=== PATIENT | male | born 1965 | race Caucasian/White ===

== ENCOUNTER 2018-05-29 11:51 | Emergency (ER) | payer SELFPAY ==
[~2018-05-29] VITALS: Ht 180.3 cm; Wt 84.0 kg
[2018-05-29 13:27] LABS: EOSINOPHILS % 0.3 % (0.0-5.0); HEMATOCRIT. 48.2 % (42.0-52.0); HEMOGLOBIN. 17.2 g/dL (14.0-18.0); LYMPHOCYTES % 26.5 % (20.0-50.0); MEAN CORPUSCULAR HEMOGLOBIN 35.6 pg (28.0-32.0); MEAN CORPUSCULAR VOLUME 99.6 fL (80.0-94.0); MEAN PLATELET VOLUME 8.4 fl (7.4-10.4); MONOCYTES % 12.4 % (2.0-8.0); NEUTROPHILS % 59.8 % (40.0-76.0); PLATELET 192 x1000/uL (130-400); RED BLOOD CELL COUNT 4.84 mill/uL (4.7-6.1); RED CELL DISTRIBUTION WIDTH 12.9 % (11.6-14.6)
[2018-05-29 13:33] LABS: CHLORIDE 106 mEq/L (98-107)
[2018-05-29 13:34] LABS: INR 1.1; PROTHROMBIN TIME 11.3 sec (9.4-11.6)
[2018-05-29] MEDS ORDERED: MORPHINE SULFATE 4 MG/ML CPJ (NOT FOR IM USE) IV ONE ×2 (13:45→15:00)
[2018-05-29] MEDS ORDERED: ONDANSETRON HCL 4MG/2ML VIAL IV ONE ×2 (13:45→15:00)
[2018-05-29] MEDS ORDERED: DIAZEPAM 5 MG TABLET PO ONE (14:15)
[2018-05-29] MEDS ORDERED: TAMSULOSIN HCL 0.4MG SR CAPSULE PO ONE ×2 (14:15→15:15)
[2018-05-29 14:43] LABS: CLARITY URINE CLEAR (CLEAR); COLOR URINE YELLOW (YELLOW); KETONES URINE NEGATIVE (NEGATIVE); LEUKOCYTE ESTERASE URINE NEGATIVE (NEGATIVE); NITRITE URINE NEGATIVE (NEGATIVE); OCCULT BLOOD URINE NEGATIVE (NEGATIVE); PH URINE 6.5 (4.5-8.0); PROTEIN URINE NEGATIVE (NEGATIVE); SPECIFIC GRAVITY URINE 1.007 (1.005-1.030); UROBILINOGEN URINE 0.2 E.U./dL (0.2-1.0)
[2018-05-29] MEDS ORDERED: OXYBUTYNIN CHLORIDE 5MG TABLET PO ONE (15:30)
[2018-05-29 18:55] VITALS: BP 134/75
== END 2018-05-29 19:00 | disposition home or self-care (01) ==
LOC: ER 11:51
DX: N40.1 Benign prostatic hyperplasia with lower urinary tract symptoms (principal); R33.8 Other retention of urine; I10 Essential (primary) hypertension; Z91.19 Patient's noncompliance with other medical treatment and regimen
CPT/HCPCS: 36415; 51702; 74176; 80053; 81003; 85025; 85610; 87086; 96374; 96375; 96376; 99285; J2270; J2405; A4315

== ENCOUNTER 2018-05-30 13:49 | Emergency (ER) | payer MEDICAID ==
[~2018-05-30] VITALS: Ht 180.3 cm; Wt 84.0 kg
[2018-05-30] MEDS ORDERED: VISCOUS LIDOCAINE 2% 15 ML UDC PO STA (14:27)
[2018-05-30] MEDS ORDERED: MORPHINE SULFATE 4 MG/ML CPJ (NOT FOR IM USE) IV STA (14:27)
[2018-05-30] MEDS ORDERED: KETOROLAC 30MG/ML VIAL IV STA (14:27)
[2018-05-30] MEDS ORDERED: ONDANSETRON HCL 4MG/2ML VIAL IV STA (14:27)
[2018-05-30] MEDS ORDERED: SODIUM CHLORIDE 0.9% 1,000 ML IV ONE (14:27)
[2018-05-30 14:42] LABS: BASOPHILS % 0.8 % (0.0-2.0); EOSINOPHILS % 0.3 % (0.0-5.0); HEMATOCRIT. 47.1 % (42.0-52.0); HEMOGLOBIN. 16.8 g/dL (14.0-18.0); LYMPHOCYTES % 16.8 % (20.0-50.0); MEAN CORPUSCULAR HEMOGLOBIN 35.4 pg (28.0-32.0); MEAN CORPUSCULAR VOLUME 99.6 fL (80.0-94.0); MEAN PLATELET VOLUME 9.1 fl (7.4-10.4); MONOCYTES % 10.7 % (2.0-8.0); NEUTROPHILS % 71.4 % (40.0-76.0); PLATELET 179 x1000/uL (130-400); RED BLOOD CELL COUNT 4.73 mill/uL (4.7-6.1)
[2018-05-30 14:45] LABS: CHLORIDE 99 mEq/L (98-107)
[2018-05-30] MEDS ORDERED: MORPHINE SULFATE 10 MG/ML CPJ ONE (15:22)
[2018-05-30] MEDS ORDERED: FENTANYL CITRATE/PF 50MCG/ML 2ML VIAL IV ONE (15:30)
[2018-05-30] MEDS ORDERED: MORPHINE SULFATE 10 MG/ML CPJ IV ONE (15:30)
[2018-05-30] MEDS ORDERED: ONDANSETRON HCL 4MG/2ML VIAL IV ONE ×2 (15:30→16:00)
[2018-05-30 15:36] LABS: CLARITY URINE CLEAR (CLEAR); COLOR URINE YELLOW (YELLOW); KETONES URINE NEGATIVE (NEGATIVE); LEUKOCYTE ESTERASE URINE NEGATIVE (NEGATIVE); NITRITE URINE NEGATIVE (NEGATIVE); OCCULT BLOOD URINE TRACE (NEGATIVE); PH URINE 6.5 (4.5-8.0); PROTEIN URINE NEGATIVE (NEGATIVE); SPECIFIC GRAVITY URINE 1.004 (1.005-1.030); UROBILINOGEN URINE 0.2 E.U./dL (0.2-1.0)
[2018-05-30] MEDS ORDERED: MORPHINE SULFATE 4 MG/ML CPJ (NOT FOR IM USE) IV ONE (16:45)
[2018-05-30 17:36] VITALS: BP 135/78
== END 2018-05-30 17:41 | disposition home or self-care (01) ==
LOC: ER 14:33
DX: R10.9 Unspecified abdominal pain (principal); R33.9 Retention of urine, unspecified; I10 Essential (primary) hypertension; F17.200 Nicotine dependence, unspecified, uncomplicated; N40.0 Benign prostatic hyperplasia without lower urinary tract symptoms; Z88.8 Allergy status to other drugs, medicaments and biological substances
CPT/HCPCS: 36415; 51702; 80053; 81003; 83690; 85025; 96374; 96375; 96376; 99285; J1885; J2270; J2405; J3010; J7030; A4315

== ENCOUNTER 2018-10-26 09:03 | Emergency (ER) | payer MEDICAID ==
[~2018-10-26] VITALS: Ht 177.8 cm; Wt 85.0 kg
[2018-10-26 09:08] VITALS: BP 142/101
== END 2018-10-26 10:10 | disposition left against medical advice (07) ==
LOC: ER 09:03
DX: M25.562 Pain in left knee (principal); Z53.21 Procedure and treatment not carried out due to patient leaving prior to being seen by health care provider

== ENCOUNTER 2019-03-10 11:35 | Inpatient (IN) | payer MEDICAID ==
[~2019-03-10] VITALS: Ht 180.3 cm; Wt 78.5 kg
[2019-03-10] MEDS ORDERED: ONDANSETRON HCL 4MG/2ML INJ IV STA (12:18)
[2019-03-10] MEDS ORDERED: MORPHINE SULFATE 4 MG/ML CPJ (NOT FOR IM USE) IV STA (12:18)
[2019-03-10] MEDS ORDERED: SODIUM CHLORIDE 0.9% 1,000 ML IV ONE (12:18)
[2019-03-10 13:27] LABS: BASOPHILS % 0.5 % (0.0-2.0); CHLORIDE 107 mEq/L (98-107); EOSINOPHILS % 0.2 % (0.0-5.0); HEMATOCRIT. 39.3 % (42.0-52.0); HEMOGLOBIN. 13.8 g/dL (14.0-18.0); LYMPHOCYTES % 18.5 % (20.0-50.0); MEAN CORPUSCULAR HEMOGLOBIN 33.4 pg (28.0-32.0); MEAN PLATELET VOLUME 8.6 fl (7.4-10.4); MONOCYTES % 8.1 % (2.0-8.0); NEUTROPHILS % 72.7 % (40.0-76.0); PLATELET 285 x1000/uL (130-400); RED BLOOD CELL COUNT 4.13 mill/uL (4.7-6.1); RED CELL DISTRIBUTION WIDTH 14.9 % (11.6-14.6)
[2019-03-10 13:30] LABS: INR 1.1; PARTIAL THROMBOPLASTIN TIME 32.2 sec (23.4-31.0); PROTHROMBIN TIME 10.9 sec (9.6-11.0)
[2019-03-10] MEDS ORDERED: GUAIFENESIN 200MG/10ML SUGAR FREE UDC PO PRN (16:15)
[2019-03-10] MEDS ORDERED: IPRATROPIUM/ALBUTEROL 0.5-3(2.5)MG/3ML NEB INH PRN (16:15)
[2019-03-10] MEDS ORDERED: CLONIDINE 0.1MG TABLET PO PRN (16:15)
[2019-03-10] MEDS ORDERED: MAGNESIUM/ALUMINUM HYDROXIDE/SIMETHICONE 30ML UDC PO PRN (16:15)
[2019-03-10] MEDS ORDERED: ACETAMINOPHEN 325MG TABLET PO PRN (16:15)
[2019-03-10] MEDS ORDERED: DOCUSATE SODIUM 100MG CAPSULE PO PRN (16:15)
[2019-03-10 16:34] LABS: PHOSPHORUS 2.9 mg/dL (2.5-4.9)
[2019-03-10 20:00] VITALS: BP 157/108
[2019-03-10] MEDS ORDERED: TIZA4CAP6 PO (21:41)
[2019-03-10] MEDS ORDERED: DUTA0.5C15 PO (21:41)
[2019-03-10] MEDS ORDERED: LISI40TA4 PO (21:41)
[2019-03-10] MEDS ORDERED: FAMO20TA8 PO (21:42)
[2019-03-10] MEDS ORDERED: ONDA4SOL PO (21:43)
[2019-03-10] MEDS ORDERED: GABA-531 PO (21:44)
[2019-03-10] MEDS ORDERED: TAMS0.4C31 PO (21:44)
[2019-03-10 22:02] VITALS: BP 157/108
[2019-03-10] MEDS ORDERED: ZOLP10TA2 PO (22:02)
[2019-03-10 22:06] VITALS: BP 157/108
[2019-03-10] MEDS: ENOXAPARIN 40MG/0.4ML SYR SUBCUT SCH (22:32)
[2019-03-10 23:06] LABS: CREATINE KINASE 73 IU/L (39-308)
[2019-03-10 23:07] LABS: CREATINE KINASE MB FRACTION < 1.0 ng/mL (0.5-3.6)
[2019-03-11] VITALS: BP 129/91
[2019-03-11] MEDS ORDERED: NON FORMULARY PATIENT HOME MED XX PRN (00:15)
[2019-03-11] MEDS: MORPHINE SULFATE 4 MG/ML CPJ (NOT FOR IM USE) IV PRN ×5 (00:24→20:34)
[2019-03-11] MEDS: ZOLPIDEM TARTRATE 5MG TABLET PO PRN ×2 (01:37→23:29)
[2019-03-11] MEDS: HYDROCODONE/ACETAMINOPHEN 5/325MG TABLET PO PRN (03:28)
[2019-03-11 04:00] VITALS: BP 138/82
[2019-03-11 06:44] LABS: BASOPHILS % 0.6 % (0.0-2.0); EOSINOPHILS % 1.7 % (0.0-5.0); HEMATOCRIT. 37.5 % (42.0-52.0); HEMOGLOBIN. 13.3 g/dL (14.0-18.0); LYMPHOCYTES % 35.9 % (20.0-50.0); MEAN CORPUSCULAR HEMOGLOBIN 33.6 pg (28.0-32.0); MEAN CORPUSCULAR VOLUME 94.6 fL (80.0-94.0); MEAN PLATELET VOLUME 8.8 fl (7.4-10.4); MONOCYTES % 10.3 % (2.0-8.0); NEUTROPHILS % 51.5 % (40.0-76.0); PLATELET 267 x1000/uL (130-400); RED BLOOD CELL COUNT 3.96 mill/uL (4.7-6.1); RED CELL DISTRIBUTION WIDTH 14.6 % (11.6-14.6)
[2019-03-11 07:07] LABS: CHLORIDE 106 mEq/L (98-107)
[2019-03-11 07:22] LABS: LDL CHOLESTEROL 144 mg/dL (5-100)
[2019-03-11 07:24] LABS: CREATINE KINASE 66 IU/L (39-308); HDL CHOLESTEROL 37 mg/dL (40-59)
[2019-03-11 07:27] LABS: CREATINE KINASE MB FRACTION < 1.0 ng/mL (0.5-3.6)
[2019-03-11 08:00] VITALS: BP 159/93
[2019-03-11] MEDS: ONDANSETRON HCL 4MG/2ML INJ IV PRN ×2 (08:31→23:49)
[2019-03-11 12:00] VITALS: BP 139/98
[2019-03-11 16:00] VITALS: BP 144/83
[2019-03-11] MEDS: LORAZEPAM 1MG TABLET PO PRN ×2 (17:27→23:01)
[2019-03-11 20:00] VITALS: BP 114/72
[2019-03-11] MEDS: ATORVASTATIN CALCIUM 20MG TABLET PO SCH (20:32)
[2019-03-11] MEDS: ENOXAPARIN 40MG/0.4ML SYR SUBCUT SCH (21:32)
[2019-03-12] VITALS: BP 130/83
[2019-03-12] MEDS: NICOTINE 7MG PATCH TD SCH ×2 (00:09→20:12)
[2019-03-12] MEDS: MORPHINE SULFATE 4 MG/ML CPJ (NOT FOR IM USE) IV PRN ×5 (00:30→20:07)
[2019-03-12 04:30] VITALS: BP 112/76
[2019-03-12] MEDS: HYDROCODONE/ACETAMINOPHEN 5/325MG TABLET PO PRN (06:18)
[2019-03-12 06:20] LABS: CHLORIDE 106 mEq/L (98-107)
[2019-03-12 06:26] LABS: HEMATOCRIT. 37.8 % (42.0-52.0); HEMOGLOBIN. 13.2 g/dL (14.0-18.0); LYMPHOCYTES % 31.3 % (20.0-50.0); MEAN CORPUSCULAR HEMOGLOBIN 33.3 pg (28.0-32.0); MEAN CORPUSCULAR VOLUME 95.5 fL (80.0-94.0); MEAN PLATELET VOLUME 8.9 fl (7.4-10.4); MONOCYTES % 8.6 % (2.0-8.0); NEUTROPHILS % 57.1 % (40.0-76.0); PLATELET 255 x1000/uL (130-400); RED BLOOD CELL COUNT 3.96 mill/uL (4.7-6.1); RED CELL DISTRIBUTION WIDTH 14.7 % (11.6-14.6)
[2019-03-12] MEDS: LORAZEPAM 1MG TABLET PO PRN ×3 (06:44→22:01)
[2019-03-12 08:00] VITALS: BP 134/101
[2019-03-12] MEDS: ONDANSETRON HCL 4MG/2ML INJ IV PRN (09:28)
[2019-03-12 12:00] VITALS: BP 124/86
[2019-03-12] MEDS: TAMSULOSIN HCL 0.4MG SR CAPSULE PO SCH (12:19)
[2019-03-12] MEDS: HYDROCODONE/ACETAMINOPHEN 10/325MG TABLET PO PRN (12:19)
[2019-03-12 16:00] VITALS: BP_SYST 109; BP_SYST 129; BP_DIAS 76; BP_DIAS 80
[2019-03-12 20:00] VITALS: BP 134/95
[2019-03-12] MEDS: ENOXAPARIN 40MG/0.4ML SYR SUBCUT SCH (20:32)
[2019-03-12] MEDS: ATORVASTATIN CALCIUM 20MG TABLET PO SCH (20:32)
[2019-03-13] VITALS: BP 119/70
[2019-03-13] MEDS: MORPHINE SULFATE 4 MG/ML CPJ (NOT FOR IM USE) IV PRN ×2 (02:28→06:40)
[2019-03-13 04:00] VITALS: BP 135/80
[2019-03-13 08:00] VITALS: BP 121/90
[2019-03-13] MEDS: TAMSULOSIN HCL 0.4MG SR CAPSULE PO SCH (08:36)
[2019-03-13] MEDS: HYDROCODONE/ACETAMINOPHEN 10/325MG TABLET PO PRN ×3 (08:36→17:48)
[2019-03-13] MEDS: LORAZEPAM 1MG TABLET PO PRN ×4 (08:37→22:10)
[2019-03-13 12:00] VITALS: BP 151/99
[2019-03-13] MEDS ORDERED: TRAMADOL 50MG TABLET PO PRN (13:15)
[2019-03-13] MEDS: CYCLOBENZAPRINE 10MG TABLET PO SCH ×2 (13:47→21:19)
[2019-03-13 16:00] VITALS: BP 125/77
[2019-03-13 20:00] VITALS: BP 114/83
[2019-03-13] MEDS: ATORVASTATIN CALCIUM 20MG TABLET PO SCH (21:19)
[2019-03-13] MEDS: ENOXAPARIN 40MG/0.4ML SYR SUBCUT SCH (21:19)
[2019-03-13] MEDS: OXYCODONE HCL/ACETAMINOPHEN 5/325MG TABLET PO PRN (21:20)
[2019-03-13] MEDS: NICOTINE 7MG PATCH TD SCH (21:21)
[2019-03-13] MEDS: ZOLPIDEM TARTRATE 5MG TABLET PO PRN (22:32)
[2019-03-14 00:37] VITALS: BP 116/79
[2019-03-14 04:00] VITALS: BP 125/80
[2019-03-14] MEDS: CYCLOBENZAPRINE 10MG TABLET PO SCH (06:00)
[2019-03-14 08:00] VITALS: BP 162/111
[2019-03-14] MEDS: LORAZEPAM 1MG TABLET PO PRN (08:11)
[2019-03-14] MEDS: TAMSULOSIN HCL 0.4MG SR CAPSULE PO SCH (08:11)
[2019-03-14 08:19] VITALS: BP 162/111
[2019-03-14] MEDS: OXYCODONE HCL/ACETAMINOPHEN 5/325MG TABLET PO PRN (08:19)
[2019-03-14] MEDS ORDERED: NEBIVOLOL HCL 5 MG TABLET PO SCH (12:15)
== END 2019-03-14 08:49 | disposition left against medical advice (07) | DRG 48 ==
LOC: ER 11:35 → 5WST 14:03 → EDBEDREQ 14:04 → ENRESERV 16:58
PROVIDERS: ADMIT Internal Medicine; ATTEND Internal Medicine
DX: G90.8 Other disorders of autonomic nervous system (principal); I27.20 Pulmonary hypertension, unspecified; D64.9 Anemia, unspecified; G89.29 Other chronic pain; I10 Essential (primary) hypertension; N40.0 Benign prostatic hyperplasia without lower urinary tract symptoms; F32.9 Major depressive disorder, single episode, unspecified; J44.9 Chronic obstructive pulmonary disease, unspecified; E78.5 Hyperlipidemia, unspecified; F17.210 Nicotine dependence, cigarettes, uncomplicated; F41.9 Anxiety disorder, unspecified; W19.XXXA Unspecified fall, initial encounter; M19.90 Unspecified osteoarthritis, unspecified site; Z88.8 Allergy status to other drugs, medicaments and biological substances; Z79.899 Other long term (current) drug therapy; Y93.89 Activity, other specified; Y92.89 Other specified places as the place of occurrence of the external cause; Y99.8 Other external cause status
CPT/HCPCS: 36415; 71045; 80048; 80061; 82550; 82553; 83735; 83880; 84100; 84134; 84443; 84484; 93005; 93306; 93308; 93880; 96374; 96375; 97162; 97166; 97530; 99285; J1650; J2270; J2405; J7030

== ENCOUNTER 2019-10-24 13:35 | Inpatient (IN) | payer MEDICAID ==
[~2019-10-24] VITALS: Ht 175.3 cm; Wt 82.1 kg
[~2019-10-24 13:35] MED LIST: DUTA0.5C15 PO; FAMO20TA8 PO; GABA-531 PO; LISI40TA4 PO; ONDA4SOL PO; TAMS0.4C31 PO; TIZA4CAP6 PO; ZOLP10TA2 PO
[2019-10-24] MEDS ORDERED: SODIUM CHLORIDE 0.9% 1,000 ML IV ONE (15:00)
[2019-10-24] MEDS ORDERED: MORPHINE SULFATE 4 MG/ML CPJ (NOT FOR IM USE) IV STA (15:00)
[2019-10-24] MEDS ORDERED: ONDANSETRON HCL 4MG/2ML INJ IV STA (15:00)
[2019-10-24 15:38] LABS: BASOPHILS % 0.8 % (0.0-2.0); EOSINOPHILS % 0.8 % (0.0-5.0); HEMATOCRIT. 45.8 % (42.0-52.0); LYMPHOCYTES % 26.7 % (20.0-50.0); MEAN CORPUSCULAR HEMOGLOBIN 36.2 pg (28.0-32.0); MEAN CORPUSCULAR VOLUME 103.4 fL (80.0-94.0); MEAN PLATELET VOLUME 8.6 fl (7.4-10.4); NEUTROPHILS % 63.7 % (40.0-76.0); PLATELET 185 x1000/uL (130-400); RED BLOOD CELL COUNT 4.43 mill/uL (4.7-6.1); RED CELL DISTRIBUTION WIDTH 14.3 % (11.6-14.6)
[2019-10-24 15:41] LABS: PROTHROMBIN TIME 10.7 sec (9.6-11.0)
[2019-10-24 15:45] LABS: CHLORIDE 108 mEq/L (98-107)
[2019-10-24 15:49] LABS: ETHANOL BLOOD 138 mg/dL
[2019-10-24 16:29] LABS: CLARITY URINE CLEAR (CLEAR); COLOR URINE YELLOW (YELLOW); KETONES URINE NEGATIVE (NEGATIVE); LEUKOCYTE ESTERASE URINE NEGATIVE (NEGATIVE); NITRITE URINE NEGATIVE (NEGATIVE); OCCULT BLOOD URINE 2+ (NEGATIVE); PH URINE 6.5 (4.5-8.0); PROTEIN URINE NEGATIVE (NEGATIVE); SPECIFIC GRAVITY URINE 1.009 (1.005-1.030); UROBILINOGEN URINE 0.2 E.U./dL (0.2-1.0)
[2019-10-24] MEDS ORDERED: MORPHINE SULFATE 4 MG/ML CPJ (NOT FOR IM USE) IV ONE (16:30)
[2019-10-24 16:44] LABS: *BARBITURATES SCREEN URINE NEGATIVE (NEGATIVE); *BENZODIAZEPINES SCREEN URINE NEGATIVE (NEGATIVE); *COCAINE SCREEN URINE NEGATIVE (NEGATIVE)
[2019-10-24 16:45] LABS: *AMPHETAMINES SCREEN URINE NEGATIVE (NEGATIVE); CANNABINOID URINE SCREEN PRESUMTIVE POSITIVE (NEGATIVE); METHADONE URINE SCREEN NEGATIVE (NEGATIVE); OPIATES URINE SCREEN PRESUMTIVE POSITIVE (NEGATIVE); PHENCYCLIDINE URINE SCREEN NEGATIVE (NEGATIVE)
[2019-10-24] MEDS ORDERED: ACETAMINOPHEN 325MG TABLET PO PRN (19:45)
[2019-10-24] MEDS ORDERED: ONDANSETRON HCL 4MG/2ML INJ IV PRN (19:45)
[2019-10-24] MEDS ORDERED: DOCUSATE SODIUM 100MG CAPSULE PO PRN (19:45)
[2019-10-24] MEDS ORDERED: IPRATROPIUM/ALBUTEROL 0.5-3(2.5)MG/3ML NEB HHN PRN (19:45)
[2019-10-24] MEDS: LORAZEPAM 0.5MG TABLET PO PRN (20:24)
[2019-10-24] MEDS: MORPHINE SULFATE 2 MG/ML CPJ (NOT FOR IM USE) IV PRN (20:24)
[2019-10-24] MEDS: CLONIDINE 0.1MG TABLET PO PRN (21:05)
[2019-10-24] MEDS: HYDROCODONE/ACETAMINOPHEN 5/325MG TABLET PO PRN (22:47)
[2019-10-25] MEDS: MORPHINE SULFATE 2 MG/ML CPJ (NOT FOR IM USE) IV PRN ×2 (00:47→04:47)
[2019-10-25] MEDS: HYDROCODONE/ACETAMINOPHEN 5/325MG TABLET PO PRN ×2 (02:19→06:21)
[2019-10-25] MEDS: CLONIDINE 0.1MG TABLET PO PRN (03:15)
[2019-10-25] MEDS: LORAZEPAM 0.5MG TABLET PO PRN (03:15)
[2019-10-25 03:36] VITALS: BP 185/120
[2019-10-25 05:13] VITALS: BP 131/97
[2019-10-25 06:21] VITALS: BP 131/99
== END 2019-10-25 07:55 | disposition left against medical advice (07) | DRG 347 ==
LOC: ER 13:57 → 7WST 18:09 → EDBEDREQTM 18:13 → EDBEDREQ 18:13 → ENRESERV 10-25 02:06
PROVIDERS: ADMIT Internal Medicine; ATTEND Internal Medicine
DX: M54.9 Dorsalgia, unspecified (principal); F17.210 Nicotine dependence, cigarettes, uncomplicated; G89.29 Other chronic pain; I10 Essential (primary) hypertension; N40.0 Benign prostatic hyperplasia without lower urinary tract symptoms; Z53.29 Procedure and treatment not carried out because of patient's decision for other reasons; Z98.1 Arthrodesis status; Z79.899 Other long term (current) drug therapy; Z74.01 Bed confinement status; Z88.8 Allergy status to other drugs, medicaments and biological substances
CPT/HCPCS: 36415; 71045; 80305; 80320; 81003; 83605; 84484; 93005; 99285; J2270; J2405; J7030; G0480